=== PATIENT | female | born 1970 | race Caucasian/White ===

== ENCOUNTER 2024-02-02 04:49 | Day surgery (SDC) | payer OTHER ==
[2024-01-27 09:20] VITALS: BMI 27.4
[2024-02-02 09:52] VITALS: TEMP 98
[2024-02-02 13:31] VITALS: PULSE 59; RESP 18
[2024-02-02 13:32] VITALS: BP 113/71
== END 2024-02-02 12:30 | disposition home or self-care (01) ==
LOC: JASU-ENDO 04:49
PROVIDERS: ATTEND Internal Medicine Gastroenterology
PROC: 0DB78ZX Excision of Stomach, Pylorus, Via Natural or Artificial Opening Endoscopic, Diagnostic (ICD-10-PCS; 2024-02-02)
PROC: 0DB68ZX Excision of Stomach, Via Natural or Artificial Opening Endoscopic, Diagnostic (ICD-10-PCS; principal; 2024-02-02 11:00)
DX: R09.A2 Foreign body sensation, throat (principal); R12 Heartburn
CPT/HCPCS: 81025; 88305-TC; 88342-TC